=== PATIENT | male | born 1940 | race Caucasian/White ===

== ENCOUNTER → 2016-09-04 | Outpatient (CLI) | payer BC, OTHER ==
[2016-09-03 11:38] LABS: BLOOD UREA NITROGEN 42 mg/dL (7-18)
[~2016-09-04] VITALS: Ht 177.8 cm; Wt 95.0 kg
[~2016-09-04] MED LIST: ALBU18HF INH; AMLO5TAB2 PO; ASPI-515 PO; ATOR10TA PO; CALC625T23 PO; CARV12.543 PO; CHOL200024 PO; CYAN100028 PO; FENO145T13 PO; FLUTICASONE SPRAY NAS; GLUC1TAB55 PO; INSU300I SC; LINA5TAB PO; MULT-717 PO; OLME40TA PO; PANT40TA5 PO; SERT100T5 PO; VIT1CAPS9 PO
== END | disposition home or self-care (01) ==
LOC: EDSTATUS 09-03 10:30 → CACL 08:28 → EDSTATUS 09-09 10:30
PROVIDERS: ATTEND Internal Medicine Cardiovascular Disease
DX: Z01.818 Encounter for other preprocedural examination (principal); I34.0 Nonrheumatic mitral (valve) insufficiency
CPT/HCPCS: 36415; 80048; 85025; 85610; 85730